=== PATIENT | female | born 1990 | race Caucasian/White ===

== ENCOUNTER 2019-05-20 23:18 | Emergency (ER) | payer OTHER ==
[~2019-05-20] VITALS: Ht 167.6 cm; Wt 61.2 kg
[2019-05-21] MEDS ORDERED: TYLENOL WITH CO1 TA1 PO (00:29)
[2019-05-21 00:38] VITALS: BP 137/85
== END 2019-05-21 00:38 | disposition home or self-care (01) ==
LOC: M.ERS 23:18
DX: S90.31XA Contusion of right foot, initial encounter (principal); W22.8XXA Striking against or struck by other objects, initial encounter; Y93.89 Activity, other specified; Y92.098 Other place in other non-institutional residence as the place of occurrence of the external cause; Y99.8 Other external cause status

== ENCOUNTER 2019-12-24 11:19 | Emergency (ER) | payer OTHER ==
[~2019-12-24] VITALS: Ht 170.2 cm; Wt 59.0 kg
[~2019-12-24 11:19] MED LIST: TYLENOL WITH CO1 TA1 PO
[2019-12-24] MEDS ORDERED: VISTARIL 25 MG25 M1 PO (12:59)
[2019-12-24] MEDS ORDERED: XANAX 0.5 MG0.5 MG PO (12:59)
[2019-12-24 13:10] VITALS: BP 117/87
--- NOTE | 2019-12-24 16:05 | EKG ---
[place] [address] ELECTROCARDIOGRAM REPORT Name: JOCELYN SHORE Room: [facility]#: [id number] Admission: 12/24/19 Attend Phys: Discharge: 12/24/19 Date of : 89 Date of Service: 12/24/19 1123 Report #: [id number] THIS REPORT FOR: //name// [facility] ED Test Date: 2019-12-24 Test Time: 11:23:30 Pat Name: JOCELYN SHORE Department: Room: Gender: Showroom [employer] Consultant: [employer] : 1990 Requested By: Gerard Gallardo Order Number: [id number] Adriano MD: Tim Hall Measurements Intervals [place] Rate: 69 P: 56 OK: 144 QRS: 112 QRSD: 103 T: 55 QT: 434 QTc: 465 Interpretive Statements Sinus rhythm Right axis deviation Nonspecific inferolateral ST-T alterations No previous ECG available for comparison Electronically Signed On 12-24-2019 16:05:41 CDT by Tim Hall [email or web address] <ELECTRONICALLY SIGNED> By: Tim Hall MD, [facility] 12/24/19 1605 1123 1123 Tim Hall MD, FAC /EPI
== END 2019-12-24 13:11 | disposition home or self-care (01) ==
LOC: M.ERS 11:19
DX: F41.0 Panic disorder [episodic paroxysmal anxiety] (principal); F43.0 Acute stress reaction

== ENCOUNTER 2020-12-26 18:38 | Emergency (ER) | payer OTHER ==
[~2020-12-26] VITALS: Ht 170.2 cm; Wt 61.7 kg
[~2020-12-26 18:38] MED LIST changes: +VISTARIL 25 MG25 M1 PO; +XANAX 0.5 MG0.5 MG PO
[2020-12-26 19:58] LABS: URINE BILIRUBIN NEGATIVE (Negative); URINE BLOOD NEGATIVE (Negative); URINE CLARITY CLEAR; URINE COLOR YELLOW; URINE GLUCOSE-RANDOM NEGATIVE (Negative); URINE KETONES NEGATIVE (Negative); URINE LEUKOCYTES-REFLEX NEGATIVE (Negative); URINE NITRITE-REFLEX NEGATIVE (Negative); URINE PROTEIN NEGATIVE (Negative); URINE UROBILINOGEN 0.2 E.U./dl (0.2-1.0)
[2020-12-26 20:44] LABS: ABSOLUTE EOSINOPHILS 0.1 thou/uL (0.0-0.7); ABSOLUTE LYMPHOCYTES 2.7 thou/uL (0.8-5.3); ABSOLUTE MONOCYTES 0.6 thou/uL (0.0-1.2); ABSOLUTE NEUTROPHILS 4.8 thou/uL (1.6-8.1); BASOPHILS 0.5 %; EOSINOPHILS 1.1 %; HEMATOCRIT 41.9 % (37.0-47.0); HEMOGLOBIN 14.4 gm/dL (12.0-15.0); LYMPHOCYTES 32.5 %; MCH 32.1 pg (26.0-34.0); MCHC 34.4 g/dL (28.0-37.0); MCV 93.3 fL (80.0-100.0); MONOCYTES 7.7 %; MPV 8.2 fl. (7.2-11.1); NUCLEATED RBCS 0 /100WBC; PLATELET COUNT* 243 thou/uL (150-400); POLYS 58.2 %; RBC 4.49 mil/uL (4.20-5.00); RDW-CV 12.3 % (10.5-14.5); WBC 8.3 thou/uL (4.0-11.0)
[2020-12-26 20:46] LABS: CALCIUM 8.6 mg/dL (8.5-10.1); CREATININE 0.8 mg/dL (0.6-1.3)
[2020-12-26 20:51] LABS: ALBUMIN 4.3 g/dL (3.4-5.0); TOTAL BILIRUBIN 0.8 mg/dL (<0.1-1.0)
[2020-12-27] MEDS ORDERED: ZOFRAN ODT4 MG PO (00:18)
[2020-12-27] MEDS ORDERED: ACETAMINOPHEN-1 EAC2 PO (00:18)
[2020-12-27 00:42] VITALS: BP 112/67
== END 2020-12-27 00:42 | disposition home or self-care (01) ==
LOC: M.ERS 18:38
PROVIDERS: Personal Emergency Response Attendant; Physician Assistant
DX: R10.32 Left lower quadrant pain (principal); R10.31 Right lower quadrant pain